=== PATIENT | male | born 1975 | race Caucasian/White ===

== ENCOUNTER 2018-11-29 09:56 | Emergency (ER) | payer BC ==
[2018-11-29] MEDS ORDERED: FENTANYL CITR 100 MCG/2 ML ONE (10:50)
[2018-11-29] MEDS ORDERED: NA CHLORIDE 0.9% 1,000 ML ONE ×2 (10:50→11:42)
[2018-11-29 11:28] LABS: Albumin 4.1 g/dL (3.4-5.0); Basophils % 0.8 % (0-1.3); Bilirubin Direct 0.3 mg/dL (0-0.2); Bilirubin Total 1.3 mg/dL (0.2-1.0); Hematocrit 46.5 % (39.6-49.0); Lymphocytes % 25.5 % (15.3-44.8); MPV 9.4 fL (7.6-11.3); Potassium 4.1 mmol/L (3.5-5.1); Protein, Total 7.1 g/dL (6.4-8.2); RBC Red Blood Cell Count 4.93 M/uL (4.33-5.43); Uric Acid 10.6 mg/dL (3.5-7.2)
[2018-11-29] MEDS ORDERED: COLCHICINE 0.6 MG TAB ONE (11:46)
--- NOTE | 2018-11-29 12:56 | ER ---
Nurse's Notes [facility] Name: Dorian Nicole Age: 43 yrs Sex: Male : 1975 Arrival Date: 11/29/2018 Time: 09:58 Bed 20 Private MD: Diagnosis: Gout;Volume depletion Presentation: 11/29 10:20 Presenting complaint: Patient states: R ankle pain that began 2 weeks ago. Was seen at [facility] and given Prednisone and Tramadol which doesn't seem to help. XRAY was obtained and did not reveal any fracture. No redness or swelling noted. Transition of care: patient was not received from another setting of care. Onset of symptoms was November 15, 2018. Risk Assessment: Do you want to hurt yourself or someone else? Patient reports no desire to harm self or others. Initial Sepsis Screen: Does the patient meet any 2 criteria? No. Patient's initial sepsis screen is negative. Does the patient have a suspected source of infection? No. Patient's initial sepsis screen is negative. Care prior to arrival: None. 10:20 Method Of Arrival: Ambulatory 10:48 Acuity: LORIN 3 tw2 Historical: - Allergies: 10:25 No Known Allergies; - Home Meds: 10:25 Prednisone Oral [Active]; Tramadol Oral [Active]; - PMHx: 10:25 Gout; - PSHx: 10:25 Tonsillectomy; - Immunization history:: Adult Immunizations unknown. - Social history:: Smoking status: Patient uses tobacco products, chewing tobacco. - Ebola Screening: : Patient denies exposure to infectious person Patient denies travel to an Ebola-affected area in the 21 days before illness onset. Screenin:48 Abuse screen: Denies threats or abuse. Nutritional screening: No deficits noted. tw2 Tuberculosis screening: No symptoms or risk factors identified. Fall Risk None identified. Assessment: 11:06 General: Appears in no apparent distress. Behavior is calm, cooperative, appropriate tw2 for age. Pain: Complains of pain in right lateral malleolus. Neuro: Level of Consciousness is awake, alert, obeys commands, Oriented to person, place, time, situation. Cardiovascular: Heart tones S1 S2 Patient's skin is warm and dry. Respiratory: Airway is patent Respiratory effort is even, unlabored, Respiratory pattern is regular, symmetrical, Breath sounds are clear bilaterally. GI: No signs and/or symptoms were reported involving the gastrointestinal system. Abdomen is flat, Bowel sounds present X 4 quads. : No signs and/or symptoms were reported regarding the genitourinary system. EENT: No signs and/or symptoms were reported regarding the EENT system. Derm: No signs and/or symptoms reported regarding the dermatologic system. Musculoskeletal: Range of motion: intact in all extremities, Reports pain in right lateral malleolus and right foot. 11:49 Reassessment: Patient appears in no apparent distress at this time. Patient and/or tw2 family updated on plan of care and expected duration. Pain level reassessed. Patient is alert, oriented x 3, equal unlabored respirations, skin warm/dry/pink. Patient states symptoms have improved. 12:26 Reassessment: Patient appears in no apparent distress at this time. Patient and/or ca1 family updated on plan of care and expected duration. Pain level reassessed. Patient is alert, oriented x 3, equal unlabored respirations, skin warm/dry/pink. walking boot applied on R foot. Vital Signs: 10:25 BP 145 / 91; Pulse 75; Resp 16; Temp 98.3(TE); Pulse Ox 98% on R/A; Weight 120.2 kg; ss Height 5 ft. 11 in. (180.34 cm); Pain 4/10; 11:07 BP 130 / 71; Pulse 72; Resp 17; Pulse Ox 98% on R/A; tw2 11:49 BP 120 / 69; Pulse 65; Resp 17; Pulse Ox 98% on R/A; tw2 12:16 BP 125 / 76; Pulse 67; Resp 18 S; Pulse Ox 96% on R/A; ca1 13:06 BP 127 / 90; Pulse 63; Resp 18 S; Pulse Ox 99% on R/A; ca1 10:25 Body Mass Index 36.96 (120.20 kg, 180.34 cm) ED Course: 09:58 Patient arrived in ED. rg4 10:09 Asya Sargent FNP-C [facility]. snw 10:09 Ulysses Alba MD is Attending Physician. snw 10:24 Triage completed. ss 10:25 Arm band placed on right wrist. ss 10:26 Bed in low position. Call light in reach. tw2 10:31 Judith Pagan, RN is Primary Nurse. ph 10:55 Inserted saline lock: 20 gauge in right antecubital area, using aseptic technique. tw2 Blood collected. 11:54 Report given to CEFERINO Adams. tw2 12:26 walking boot R foot applied. ca1 13:06 No provider procedures requiring assistance completed. IV discontinued, intact, ca1 bleeding controlled, No redness/swelling at site. Pressure dressing applied. Administered Medications: 11:00 Drug: NS 0.9% 1000 ml Route: IV; Rate: 1 bolus; Site: right antecubital; tw2 12:15 Follow up: Response: No adverse reaction; IV Status: Completed infusion; IV Intake: ca1 1000ml 11:00 Drug: fentaNYL (PF) 25 mcg {Note: RASS 0.} Route: IVP; Site: right antecubital; tw2 11:46 Follow up: Response: No adverse reaction; Pain is decreased; RASS: Alert and Calm (0) tw2 11:44 Drug: NS 0.9% 1000 ml Route: IV; Rate: 1 bolus; Site: right antecubital; tw2 13:07 Follow up: Urine output 200 ml; Response: No adverse reaction; IV Status: Completed ca1 infusion; IV Intake: 1000ml 11:49 Drug: Colcrys 1.2 mg Route: PO; tw2 13:07 Follow up: Response: No adverse reaction ca1 Intake: 12:15 IV: 1000ml; Total: 1000ml. ca1 13:07 IV: 1000ml; Total: 2000ml. ca1 Output: 13:07 Urine: 200ml; Total: 200ml. ca1 Outcome: 12:56 Discharge ordered by snniesha 13:21 Discharged to home ambulatory, with significant other. ca1 13:21 Condition: stable 13:21 Discharge instructions given to patient, Instructed on discharge instructions, follow up and referral plans. medication usage, Demonstrated understanding of instructions, follow-up care, medications, Prescriptions given X 1. 13:21 Patient left the ED. ca1 Signatures: Asya Sargent, [employer] Kim Jacobo RN RN Judith Pagan, CEFERINO [place] Tara Anderson RN RN tw2 Tonya Hsu rg4 Angie Mahajan RN RN ca1 Corrections: (The following items were deleted from the chart) 10:26 10:20 Presenting complaint: Patient states: R ankle pain that began 2 weeks ago. Was ss seen at [facility] and given Prednisone and Tramadol which doesn't seem to help. XRAY was obtained and did not reveal any fracture. No redness or swelling noted. 10: 10:20 Acuity: LORIN 4 ss tw2
--- NOTE | 2018-11-29 12:57 | EDPHYS ---
Physician Documentation [facility] Name: Dorian Nicole Age: 43 yrs Sex: Male : 1975 Arrival Date: 11/29/2018 Time: 09:58 Bed 20 Private MD: ED Physician Ulysses Alba HPI: 11/29 10:54 This 43 yrs old Male presents to ER via Ambulatory with complaints of Ankle snw Pain. 10:54 Onset: The symptoms/episode began/occurred suddenly, 2 week(s) ago, and became snw persistent. Associated signs and symptoms: Pertinent positives: muscle cramping. Modifying factors: The patient symptoms are alleviated by rest. The patient has not experienced similar symptoms in the past. The patient has been recently seen by a physician: with similar presenting complaints, given anti-inflammatories and tramadol. Pt not taking tramadol 2nd to dizziness/need to work. Historical: - Allergies: 10:25 No Known Allergies; ss - Home Meds: 10:25 Prednisone Oral [Active]; Tramadol Oral [Active]; ss - PMHx: 10:25 Gout; ss - PSHx: 10:25 Tonsillectomy; ss - Immunization history:: Adult Immunizations unknown. - Social history:: Smoking status: Patient uses tobacco products, chewing tobacco. - Ebola Screening: : Patient denies exposure to infectious person Patient denies travel to an Ebola-affected area in the 21 days before illness onset. ROS: 10:54 Constitutional: Negative for fever, chills, and weight loss, Eyes: Negative for injury, snw pain, redness, and discharge, ENT: Negative for injury, pain, and discharge, Neck: Negative for injury, pain, and swelling, Cardiovascular: Negative for chest pain, palpitations, and edema, Respiratory: Negative for shortness of breath, cough, wheezing, and pleuritic chest pain, Abdomen/GI: Negative for abdominal pain, nausea, vomiting, diarrhea, and constipation, Back: Negative for injury and pain, : Negative for injury, bleeding, discharge, and swelling, Skin: Negative for injury, rash, and discoloration, Neuro: Negative for headache, weakness, numbness, tingling, and seizure. 10:54 MS/extremity: Positive for decreased range of motion, pain, swelling, tenderness, of the right lateral malleolus and lateral side of right heel, severe, recurrent muscle cramps. Exam: 10:52 Constitutional: This is a well developed, well nourished patient who is awake, alert, snw and in no acute distress. Head/Face: Normocephalic, atraumatic. Eyes: Pupils equal round and reactive to light, extra-ocular motions intact. Lids and lashes normal. Conjunctiva and sclera are non-icteric and not injected. Cornea within normal limits. Periorbital areas with no swelling, redness, or edema. ENT: Nares patent. No nasal discharge, no septal abnormalities noted. Tympanic membranes are normal and external auditory canals are clear. Oropharynx with no redness, swelling, or masses, exudates, or evidence of obstruction, uvula midline. Mucous membranes moist. Neck: Trachea midline, no thyromegaly or masses palpated, and no cervical lymphadenopathy. Supple, full range of motion without nuchal rigidity, or vertebral point tenderness. No Meningismus. Chest/axilla: Normal chest wall appearance and motion. Nontender with no deformity. No lesions are appreciated. Cardiovascular: Regular rate and rhythm with a normal S1 and S2. No gallops, murmurs, or rubs. Normal PMI, no JVD. No pulse deficits. Respiratory: Lungs have equal breath sounds bilaterally, clear to auscultation and percussion. No rales, rhonchi or wheezes noted. No increased work of breathing, no retractions or nasal flaring. Abdomen/GI: Soft, non-tender, with normal bowel sounds. No distension or tympany. No guarding or rebound. No evidence of tenderness throughout. Back: No spinal tenderness. No costovertebral tenderness. Full range of motion. Skin: Warm, dry with normal turgor. Normal color with no rashes, no lesions, and no evidence of cellulitis. Neuro: Awake and alert, GCS 15, oriented to person, place, time, and situation. Cranial nerves II-XII grossly intact. Motor strength 5/5 in all extremities. Sensory grossly intact. Cerebellar exam normal. Normal gait. Psych: Awake, alert, with orientation to person, place and time. Behavior, mood, and affect are within normal limits. 10:52 Musculoskeletal/extremity: Extremities: grossly normal except: noted in the lateral side of right heel: decreased ROM, pain, ROM: limited active range of motion due to pain, in the right lateral malleolus, Circulation is intact in all extremities. Sensation intact. Compartment Syndrome exam of affected extremity: is normal. Vital Signs: 10:25 BP 145 / 91; Pulse 75; Resp 16; Temp 98.3(TE); Pulse Ox 98% on R/A; Weight 120.2 kg; ss Height 5 ft. 11 in. (180.34 cm); Pain 4/10; 11:07 BP 130 / 71; Pulse 72; Resp 17; Pulse Ox 98% on R/A; tw2 11:49 BP 120 / 69; Pulse 65; Resp 17; Pulse Ox 98% on R/A; tw2 12:16 BP 125 / 76; Pulse 67; Resp 18 S; Pulse Ox 96% on R/A; ca1 13:06 BP 127 / 90; Pulse 63; Resp 18 S; Pulse Ox 99% on R/A; ca1 10:25 Body Mass Index 36.96 (120.20 kg, 180.34 cm) ss MDM: 10:31 Patient medically screened. snw 12:57 Data reviewed: vital signs, nurses notes. Data interpreted: Pulse oximetry: on room air snw is 96 %. Interpretation: acceptable. Counseling: I had a detailed discussion with the patient and/or guardian regarding: the historical points, exam findings, and any diagnostic results supporting the discharge/admit diagnosis, lab results, the need for outpatient follow up, to return to the emergency department if symptoms worsen or persist or if there are any questions or concerns that arise at home. Response to treatment: the patient's symptoms have markedly improved after treatment. Special discussion: Based on the history and exam findings, there is no indication for further emergent testing or inpatient evaluation. I discussed with the patient/guardian the need to see the primary care provider for further evaluation of the symptoms. 11/29 10:51 Order name: Basic Metabolic Panel; Complete Time: 11:30 snw 11/29 10:51 Order name: CBC with Diff; Complete Time: 11:31 snw 11/29 10:51 Order name: Hepatic Function; Complete Time: 11:30 snw 11/29 10:51 Order name: Uric Acid; Complete Time: 11:30 snw 11/29 10:51 Order name: CPK; Complete Time: 11:30 snw 11/29 10:51 Order name: Labs collected and sent; Complete Time: 11:05 snw 11/29 10:51 Order name: IV Start; Complete Time: 11:05 tw2 11/29 12:13 Order name: Walking boot: right; Complete Time: 12:16 snw Administered Medications: 11:00 Drug: NS 0.9% 1000 ml Route: IV; Rate: 1 bolus; Site: right antecubital; tw2 12:15 Follow up: Response: No adverse reaction; IV Status: Completed infusion; IV Intake: ca1 1000ml 11:00 Drug: fentaNYL (PF) 25 mcg {Note: RASS 0.} Route: IVP; Site: right antecubital; tw2 11:46 Follow up: Response: No adverse reaction; Pain is decreased; RASS: Alert and Calm (0) tw2 11:44 Drug: NS 0.9% 1000 ml Route: IV; Rate: 1 bolus; Site: right antecubital; tw2 13:07 Follow up: Urine output 200 ml; Response: No adverse reaction; IV Status: Completed ca1 infusion; IV Intake: 1000ml 11:49 Drug: Colcrys 1.2 mg Route: PO; tw2 13:07 Follow up: Response: No adverse reaction ca1 Disposition: 11/29/18 12:56 Discharged to Home. Impression: Gout, Volume depletion. - Condition is Stable. - Discharge Instructions: Gout, Rehydration, Adult, Walking Boot. - Prescriptions for Diclofenac Sodium 75 mg Oral Tablet Sustained Release - take 1 tablet by ORAL route 2 times per day; 30 tablet. - Medication Reconciliation Form, Thank You Letter, Antibiotic Education, Prescription Opioid Use form. - Follow up: Private Physician; When: 2 - 3 days; Reason: Recheck today's complaints, Continuance of care, Re-evaluation by your physician. Follow up: Emergency Department; When: As needed; Reason: Worsening of condition. Addendum: 12/01/2018 15:22 Co-signature as Attending Physician, Ulysses Alba MD. g s Signatures: Dispatcher [employer] EDMS Asya Sargent, [employer]C [employer] Kim Jacobo RN RN Tara Anderson RN RN tw2 Ulysses Alba MD MD [facility] RN RN ca1 Corrections: (The following items were deleted from the chart) 11/29 13:21 12:56 11/29/2018 12:56 Discharged to Home. Impression: Gout; Volume depletion. ca1 Condition is Stable. Forms are Medication Reconciliation Form, Thank You Letter, Antibiotic Education, Prescription Opioid Use. Follow up: Private Physician; When: 2 - 3 days; Reason: Recheck today's complaints, Continuance of care, Re-evaluation by your physician. Follow up: Emergency Department; When: As needed; Reason: Worsening of condition. snw
== END 2018-11-29 13:21 | disposition home or self-care (01) ==
LOC: ER 09:56
DX: M10.9 Gout, unspecified (principal); E86.9 Volume depletion, unspecified; F17.220 Nicotine dependence, chewing tobacco, uncomplicated
CPT/HCPCS: 96361; 85025; 80048; 36415; 82550; 80076; 84550; 96374; 99284; J3010; J7030 ×2